=== PATIENT | male | born 1945 | race African-American/Black ===

== ENCOUNTER 2018-05-26 11:46 | Emergency (ER) | payer MEDICARE ==
--- NOTE | 2018-05-26 14:30 | RAD ---
PORTABLE CHEST: Date: 05/26/18 Time: 1402 hours HISTORY: Right-sided chest pain, shoulder pain. FINDINGS: The heart size is normal. There is evidence of old granulomatous disease. The lungs are well expanded without focal areas of consolidation, pneumothoraces, or pleural effusions. IMPRESSION: No acute process. POS: [facility]
--- NOTE | 2018-05-26 14:31 | RAD ---
RIGHT KNEE 4 VIEWS:: Date: 05/26/18 PROVIDED CLINICAL HISTORY: Pain status post injury. FINDINGS: There is no evidence for fracture or other acute osseous abnormality. Metallic densities are seen in the soft tissues posterior to the knee. Vascular calcifications are noted. Alignment appears anatomic . Joint spaces appear preserved. Mild knee joint capsular distention likely reflects effusion. IMPRESSION: No evidence for an acute osseous abnormality. If there is persistent clinical concern, conservative m anagement and follow-up imaging are advised. POS: [facility]
[2018-05-26] MEDS ORDERED: Acetaminophen 500 MG TAB ONE (15:17)
== END 2018-05-26 15:25 | disposition home or self-care (01) ==
LOC: ERS 11:46
DX: S46.911A Strain of unspecified muscle, fascia and tendon at shoulder and upper arm level, right arm, initial encounter (principal); M25.561 Pain in right knee; I10 Essential (primary) hypertension; E78.5 Hyperlipidemia, unspecified; F32.9 Major depressive disorder, single episode, unspecified; F17.210 Nicotine dependence, cigarettes, uncomplicated; Z79.899 Other long term (current) drug therapy; V89.2XXA Person injured in unspecified motor-vehicle accident, traffic, initial encounter
CPT/HCPCS: 71045

== ENCOUNTER 2019-09-05 10:23 | Observation (INO) | payer MEDICARE ==
[2019-09-05 11:20] LABS: #Basophils 0.1 thou/uL (0.0-0.2); #Lymphocytes 1.1 thou/uL (1.20-3.40); #Monocytes 0.6 thou/uL (0.11-0.59); %Basophils 0.9 % (0.0-1.0); %Eosinophils 0.7 % (0.0-10.0); %Lymphocytes 18.3 % (21.0-51.0); %Monocytes 10.6 % (0.0-10.0); %Neutrophils 69.5 % (42.0-75.0); Mean Corpuscular HGB CONC 32.9 g/dL (32.0-36.0); Mean Corpuscular Hemoglobin 30.4 pg (27.0-31.0); Mean Corpuscular Volume 92.4 fL (78.0-98.0); Mean Platelet Volume 6.4 fL (7.4-10.4); Platelet Count 321 thou/uL (130-400); RBC Distribution Width 13.8 % (11.5-14.5); Red Blood Cell (RBC) Count 4.28 mill/uL (4.70-6.10); White Blood Cell (WBC) Count 5.8 thou/uL (4.8-10.8)
[2019-09-05 11:35] LABS: ALT (SGPT) 24 U/L (8-55); AST (SGOT) 28 U/L (5-34); Albumin 4.2 g/dL (3.4-4.8); Alkaline Phosphatase 92 U/L (40-110); Anion Gap 13 mmol/L (10-20); BUN (Urea Nitrogen) 22 mg/dL (8.4-25.7); Bilirubin, Total 0.5 mg/dL (0.2-1.2); Calc. Creatinine Clearance 0 mL/min (70-130); Calcium 9.5 mg/dL (7.8-10.44); Carbon Dioxide 28 mmol/L (23-31); Chloride 101 mmol/L (98-107); Estimated GFR-MDRD 63; Globulin 3.3 g/dL (2.4-3.5); Glucose 90 mg/dL (83-110); Potassium 3.8 mmol/L (3.5-5.1); Protein, Total 7.5 g/dL (5.8-8.1); Sodium 138 mmol/L (136-145)
--- NOTE | 2019-09-05 13:04 | CT ---
EXAM: CT ABDOMEN AND PELVIS HISTORY: Abdominal pain. COMPARISON: None. Procedure: Multiple contiguous axial images were obtained and a CT of the abdomen and pelvis with IV contrast. C oronal reformats were performed. FINDINGS: Lower Chest: Dependent atelectatic changes. Calcified granuloma in the lingula. Vessels: Normal caliber aorta. Atherosclerosis. No periaortic fat stranding. Probable vascular occlus ion of the left common iliac artery. Heart: Normal heart size. Abdomen: Portal vein:Patent Gallbladder: No calcified gallstones. Normal caliber wall. Liver: within normal limits. Pancreas: within normal limits. Spleen: within normal limits. Adrenals: within normal limits. Kidneys: Symmetric enhancement. No obstructive uropathy. Peritoneum: No ascites or free air, no fluid collection. Bowel: Limited evaluation due to the lack of oral contrast administration. No evidence of bowel obstr uction. Ileocecal junction is unremarkable. Normal caliber appendix. Scattered fecal material in a nondistended, nondilated colon. Diverticulosis, without evidence of diverticulitis. Mesentery and Retroperitoneum: No enlarged mesenteric or retroperitoneal lymph nodes. Nonspecific loc ulated hypodensity along the right flank, inferior to the cecal apex measures 4.0 x 2.9 x 3.3 cm. Findings may represent an incidental seroma or nonspecific benign cystic lesion. Abdominal Wall: within normal limits. Pelvis: Reproductive Organs: Reproductive organs are unremarkable. Pelvis: No mass, lymphadenopathy, free air or free fluid. Bladder: within normal limits. Bones: within normal limits. IMPRESSION: 1. No acute abnormality in the abdomen or pelvis 2. Diverticulosis, without evidence of diverticulitis 2. Normal caliber appendix 4. Nonspecific benign-appearing cystic lesion in the right lower quadrant. 5. Atherosclerosis and probable vascular occlusion of the left common iliac artery.
[2019-09-05] MEDS ORDERED: Aspirin Chewable 81 MG TAB ONE (13:35)
[2019-09-05 14:31] LABS: Bilirubin Negative (Negative); Blood, Urine Negative (Negative); Clarity Clear (Clear); Glucose, Urine (Dipstick) Normal (Negative); Leukocyte Negative Leu/uL (Negative); Nitrite Negative (Negative); Protein, Urine (Dipstick) 10 mg/dL (Neg-Trace); Urobilinogen Normal mg/dL (Less than 2)
[2019-09-05] MEDS ORDERED: Sucralfate 1 GM/10 ML UDCUP ONE (14:36)
[2019-09-05 15:42] LABS: CKMB 1.8 ng/mL (0-6.6)
[2019-09-05] MEDS ORDERED: Guaifenesin DM 100-10/5 ML UDCUP PO PRN (16:58)
[2019-09-05] MEDS ORDERED: Senokot S 8.6-50 MG TAB PO PRN (16:58)
[2019-09-05] MEDS ORDERED: Acetaminophen 325 MG TAB PO PRN (16:58)
[2019-09-05] MEDS ORDERED: Bisacodyl 10 MG SUPP PR PRN (16:58)
[2019-09-05] MEDS ORDERED: Ondansetron PF 4 MG/2 ML Vial IVP PRN (16:58)
[2019-09-05] MEDS ORDERED: Sodium Chloride 0.9% 1,000 ML IV SCH (17:00)
--- NOTE | 2019-09-05 18:17 | HP ---
REASON FOR ADMISSION: Epigastric pain, to rule out ACS/angina equivalent, abdominal pain with history of peripheral vascular disease. HISTORY OF PRESENTING ILLNESS: The patient gives history of epigastric pain which started in the afternoon. This lasted for a few minutes. He had an episode of diarrhea as well. No blood in the stool. No retrosternal pain as such. He has had mild cough, which he says is usual for him. No fever. The patient also has peripheral vascular disease in his left side and has trouble ambulating for more than ADL distances. He also admits to using cocaine for the 1st time yesterday. No complaints of any obvious exposure to someone with COVID-19 as far as he knows. He does not recall if he has had any cardiac workup in the past. PAST MEDICAL AND SURGICAL HISTORY: History of hypertension, dyslipidemia, mood disorder/PTSD. CURRENT MEDICATIONS: 1. Patient is on lisinopril 10 mg daily. 2. Aspirin 81 mg p.o. daily. 3. Bupropion 100 mg daily. 4. Trazodone 300 mg p.o. at bedtime. 5. Lisinopril with hydrochlorothiazide 10/12.5 mg daily. 6. Zocor 20 mg p.o. at bedtime. ALLERGIES: NO KNOWN DRUG ALLERGIES. PERSONAL HISTORY: States he quit smoking 10 years ago. He used cocaine for the 1st time yesterday. He used to use marijuana before, the last use was more than 2 months back. Uses alcohol on social occasions. He normally ambulates by himself, occasionally uses cane. He lives with his son. FAMILY HISTORY: Mother in her 60s. She had breast cancer. Father was killed in his 50s. CODE STATUS: Full. Power of wire repairer is his son, Mr. Anabel Mortensen. REVIEW OF SYSTEMS: CONSTITUTIONAL: Negative for weight loss or gain, ability to conduct usual activities. SKIN: Negative for rash, itching. EYES: Negative for double vision, pain. ENT/MOUTH: Negative for nose bleeding, neck stiffness, pain, tenderness. CARDIOVASCULAR: Negative for palpitations, dyspnea on exertion, orthopnea. RESPIRATORY: Negative for shortness of breath, wheezing, cough, hemoptysis, fever or night sweats. GASTROINTESTINAL: Negative for poor appetite, abdominal pain, heartburn, nausea, vomiting, constipation, or diarrhea. GENITOURINARY: Negative for urgency, frequency, dysuria, nocturia. MUSCULOSKELETAL: Negative for pain, swelling. NEUROLOGIC/PSYCHIATRIC: Negative for anxiety, depression. ALLERGY/IMMUNOLOGIC: Negative for skin rash, bleeding tendency. PHYSICAL EXAMINATION: GENERAL: The patient is a 74-year-old male, who is currently not in any acute distress. VITAL SIGNS: Blood pressure 112 x 60, pulse is 84 per minute, respiratory rate 20 per minute, temperature 97.8 degrees Fahrenheit, saturating 96% on room air. NECK: Supple. No elevated JVD. HEENT: Eyes; extraocular muscles intact. Pupils reacting to light. Oral cavity, mucous membranes are moist. No exudates or congestion. CARDIOVASCULAR SYSTEM: S1, S2 heard. Regular rhythm. RESPIRATORY SYSTEM: Air entry 1+ bilateral. Scattered rhonchi plus no rales or wheezes. ABDOMEN: Soft. Mild tenderness in the epigastric area. No rigidity or guarding. EXTREMITIES: No peripheral edema or calf tenderness. Peripheral pulses are barely palpable on the left foot. Right lower extremity peripheral pulses are felt. CENTRAL NERVOUS SYSTEM: No gross focal motor deficits noted. The patient is alert, awake, and oriented well. PSYCHIATRIC SYSTEM: Patient's mood is euthymic. No hallucinations or delusions. LABORATORY DATA: EKG done shows normal sinus rhythm at 65 beats per minute and there is Q-wave seen in V1 and V2. CT of the abdomen and pelvis done shows no acute abnormality in the abdomen or pelvis. Diverticulosis is seen. No evidence of diverticulitis. There is a benign-appearing cystic lesion in the right lower quadrant, atherosclerosis and probable vascular occlusion of the left common iliac artery. White count of 5.8, H and H 13 and 39, platelet count 321 with 69% neutrophils, MCV is 92. BUN 22, creatinine 1.3, serum bicarb 28. Troponin 1st set was negative, 2nd set is 0.03. CK-MB 1.8. Liver enzymes are within normal limits. Serum glucose 90. CLINICAL IMPRESSION AND PLAN: Patient will be under observation on telemetry for chest pain equivalent, to rule out acute coronary syndrome. He also has severe peripheral vascular disease with occlusion of left internal iliac artery. He also has claudication symptoms. In view of atherosclerosis, we will obtain a nuclear stress test 1st and see if he needs cardiac coronary angiogram in addition to peripheral vascular procedures. I have spoken to Dr. René Rainey, who will be evaluating patient. If procedures are planned, he will be switched over to inpatient status. He will be on full-dose aspirin, Lipitor. We will continue his home dose of Wellbutrin and trazodone. He will be on nitroglycerin paste half-inch q.8 hourly, gentle hydration with normal saline at 50 mL per hour for a total of 1 L. Echo with 2D Doppler for LV function. We will continue to closely monitor him on telemetry. Job ID: [id number]
[2019-09-05 18:28] LABS: Troponin I 0.014 ng/mL (< 0.028)
[2019-09-05] MEDS ORDERED: traZODone HCl 150 MG TAB PO SCH (21:00)
[2019-09-05] MEDS ORDERED: Atorvastatin Calcium 40 MG TAB PO SCH (21:00)
[2019-09-05] MEDS: Famotidine 20 MG TAB PO SCH (21:15)
[2019-09-05 21:30] LABS: Troponin I 0.023 ng/mL (< 0.028)
--- NOTE | 2019-09-05 22:26 | CON ---
DATE OF CONSULTATION: 09/05/2019 REASON FOR CONSULTATION: Evaluate the patient with peripheral vascular disease. HISTORY OF PRESENT ILLNESS: Mr. Rios is a 74-year-old gentleman, who was admitted with epigastric pain, rule out coronary artery disease. He has history of peripheral vascular disease. He has been followed at the [place] and was set up for a procedure that he is not aware of what it was, but this was delayed due to the COVID crisis and he is now here in the hospital. I have been asked to see him for further evaluation of his peripheral vascular disease. The patient complains of severe thigh and buttock claudication with ambulation. He says this comes on at less than 5 minutes of walking. It happens on the left only. His right side, he does not have any claudication. He has no rest pain. He has no history of tissue loss. He has no history of prior peripheral vascular procedures. He has no history of coronary artery disease or cerebrovascular disease. PAST MEDICAL HISTORY: 1. Hypertension. 2. Dyslipidemia. 3. Multisubstance abuse. PAST SURGICAL HISTORY: None. CURRENT MEDICATIONS: 1. Aspirin 81 mg daily. 2. Lisinopril/hydrochlorothiazide 10/12.5 mg daily. 3. Zocor 20 mg at bedtime. 4. Bupropion 100 mg daily. 5. Trazodone 300 mg at bedtime. ALLERGIES: NONE. SOCIAL HISTORY: The patient says he quit smoking cigarettes approximately 3 months ago. He used marijuana regularly up until that time. He tried cocaine for the first time yesterday. REVIEW OF SYSTEMS: A 10-point review of systems is performed and is negative except as above. PHYSICAL EXAMINATION: GENERAL: This is a diminutive elderly gentleman, resting comfortably in bed. VITAL SIGNS: Temperature is 98.0, pulse is 65 and regular, and blood pressure is 160/78. HEENT: Sclerae nonicteric. Pupils are equal and round bilaterally. NECK: Supple. He has no carotid bruits. CHEST: Clear bilaterally. HEART: Rhythm is regular without murmur. ABDOMEN: Soft and nontender. EXTREMITIES: There is no edema. Feet are warm bilaterally. He has Doppler signals in both dorsalis pedis bilaterally. Femoral pulse is palpable on the right and not on the left. ASSESSMENT AND PLAN: This is a pleasant 74-year-old gentleman, who has history of peripheral vascular disease that has apparently been worked up and he was scheduled for treatment, which has been delayed at the [place]. He is asked to be seen here. Our first step in evaluation will include a CT angiogram. He obviously has some iliac disease on the left with no palpable femoral pulse on the left. We will see what this looks like and see as to the best treatment option after CT angiogram. Job ID: [id number]
[2019-09-05] MEDS: Nitroglycerin 2% Ointment 1 INCH/1 GM Packet TOP SCH (22:41)
[2019-09-06 04:57] LABS: #Eosinphils 0.1 thou/uL (0.0-0.7); #Lymphocytes 1.2 thou/uL (1.20-3.40); #Monocytes 0.5 thou/uL (0.11-0.59); #Neutrophils 2.4 thou/uL (1.40-6.50); %Basophils 1.2 % (0.0-1.0); %Eosinophils 1.2 % (0.0-10.0); %Lymphocytes 29.2 % (21.0-51.0); %Monocytes 12.4 % (0.0-10.0); Hemoglobin 10.9 g/dL (14.0-18.0); Mean Corpuscular HGB CONC 32.2 g/dL (32.0-36.0); Mean Corpuscular Hemoglobin 30.2 pg (27.0-31.0); Mean Corpuscular Volume 93.6 fL (78.0-98.0); Mean Platelet Volume 6.9 fL (7.4-10.4); Platelet Count 283 thou/uL (130-400); RBC Distribution Width 13.8 % (11.5-14.5); Red Blood Cell (RBC) Count 3.62 mill/uL (4.70-6.10); White Blood Cell (WBC) Count 4.2 thou/uL (4.8-10.8)
[2019-09-06] MEDS: Nitroglycerin 2% Ointment 1 INCH/1 GM Packet TOP SCH ×2 (05:01→15:02)
[2019-09-06 05:20] LABS: Anion Gap 11 mmol/L (10-20); BUN (Urea Nitrogen) 28 mg/dL (8.4-25.7); Calc. Creatinine Clearance 52 mL/min (70-130); Calcium 8.2 mg/dL (7.8-10.44); Carbon Dioxide 24 mmol/L (23-31); Cardiac Risk 2.5 (Less than 4.5); Chloride 108 mmol/L (98-107); Cholesterol 168 mg/dl (< 200 Desired); Estimated GFR-MDRD 84; Glucose 105 mg/dL (83-110); HDL Cholesterol 66 mg/dL (>60 Neg Risk); LDL Cholesterol, Calculated 80 mg/dL; Potassium 3.6 mmol/L (3.5-5.1); Sodium 139 mmol/L (136-145); Triglycerides 110 mg/dL (Less than 150)
[2019-09-06] MEDS ORDERED: Aspirin 325 mg Enteric Coated Tablet PO SCH (09:00)
[2019-09-06] MEDS ORDERED: Enoxaparin Sodium 40 MG/0.4 ML SYRINGE SC SCH (09:00)
[2019-09-06] MEDS ORDERED: buPROPion HCl 100 MG TAB PO SCH (09:00)
[2019-09-06] MEDS ORDERED: Regadenoson 0.4 MG/5 ML SYRINGE ONE (09:14)
--- NOTE | 2019-09-06 10:35 | PDOC.HOSPP ---
- Subjective Encounter Date: 09/06/19 Encounter Time: 09:30 Subjective: no chest pain or sob this am feels better - Objective Vital Signs & Weight: Vital Signs (12 hours) Temp Pulse Resp BP Pulse Ox 09/06/19 08:07 97.9 F 65 20 160/80 H 95 09/06/19 04:58 98.3 F 60 18 124/63 93 L Weight Weight 129 lb 9.6 oz I&O: 09/05/19 09/06/19 09/07/19 06:59 06:59 06:59 Intake Total 0 Output Total 0 Balance 0 Result Diagrams: 09/06/19 03:46 09/06/19 03:46 Hospitalist ROS - Medication Medications: Active Medications Generic Name Dose Route Start Last Admin Trade Name Jermaineq PRN Reason Stop Dose Admin Atorvastatin Calcium 40 mg 09/05/19 21:00 09/05/19 21:15 Lipitor PO 40 mg HS SINA Administration Famotidine 20 mg 09/05/19 21:00 09/05/19 21:15 Pepcid PO 20 mg BID SINA Administration Sodium Chloride 1,000 mls @ 50 mls/hr 09/05/19 17:00 09/05/19 17:50 Normal Saline 0.9% IV 09/06/19 12:59 1,000 mls .Q20H SINA Administration Nitroglycerin 0.5 inch 09/05/19 22:00 09/06/19 05:01 Nitro-Bid 2% Ointment TOP 0.5 inch Q8HR SINA Administration Trazodone HCl 300 mg 09/05/19 21:00 09/05/19 21:15 Desyrel PO 300 mg HS SINA Administration - Exam General Appearance: awake alert Eye: PERRL, anicteric sclera ENT: no oropharyngeal lesions, moist mucosa Neck: supple, no JVD Heart: RRR, no murmur Respiratory: no wheezes, no rales Gastrointestinal: soft, non-tender, non-distended, normal bowel sounds Extremities: no cyanosis, no edema Neurological: cranial nerve grossly intact, no focal deficits Psychiatric: normal affect, A&O x 3 Hosp A/P (1) Chest pain Code(s): R07.9 - CHEST PAIN, UNSPECIFIED Status: Acute (2) PVD (peripheral vascular disease) Code(s): I73.9 - PERIPHERAL VASCULAR DISEASE, UNSPECIFIED Status: Acute (3) Dyslipidemia Code(s): E78.5 - HYPERLIPIDEMIA, UNSPECIFIED Status: Chronic (4) Cocaine abuse Code(s): F14.10 - COCAINE ABUSE, UNCOMPLICATED Status: Chronic (5) Hypertension Code(s): I10 - ESSENTIAL (PRIMARY) HYPERTENSION Status: Chronic Qualifiers: Hypertension type: essential hypertension Qualified Code(s): I10 - Essential (primary) hypertension - Plan for stress test this am CT aorta with run off further procedures depend on above tests if any procedures are planned switch him to inpatient status hemostable continue current meds
--- NOTE | 2019-09-06 14:21 | NM ---
NUCLEAR MEDICINE CARDIAC STRESS WITH EF AND WALL MOTION: HISTORY: Angina TECHNIQUE: Patient was administered 9 mCi of technetium 99M sestamibi for rest imaging and 27 mCi of technetium 99M sestamibi for stress imaging. Cardiac gating was performed. FINDINGS: Homogeneous distribution of the radiotracer in the left ventricle on the stress attenuation correctio n images. No reversibility or fixed defect TID is 1.07 End-diastolic volume is 88 mL End-systolic volume is 38 mL Cardiac gating: Normal wall motion and thickening. 57% ejection fraction. IMPRESSION: 1. No reversibility or fixed defect. 2. 57% ejection fraction. Transcribed Date/Time: 09/06/2019 3:13 PM
[2019-09-06] MEDS: Famotidine 20 MG TAB PO SCH (14:33)
--- NOTE | 2019-09-06 14:50 | CT ---
HISTORY: Peripheral vascular disease COMPARISON: None Correlation: Abdomen pelvis CT 09/05/2019 TECHNIQUE: Multiple contiguous axial images were obtained a CTA of the abdomen, pelvis, and bilateral lower extremities with contrast. Sagittal and coronal 3-D MIP reformats were performed. FINDINGS: Liver: Appropriate arterial phase enhancement. Gallbladder: No evidence of cholelithiasis or cholecystitis. Kidneys: Symmetric enhancement of the kidneys. No obstructive uropathy. Adrenal glands: Appropriate arterial phase enhancement. Spleen: Appropriate arterial phase enhancement. Pancreas: Appropriate enhancement. Bowel: No bowel obstruction. Reproductive organs :Unremarkable. Retroperitoneum: No lymphadenopathy Bones: Degenerative changes in the spine. Inferior thorax: Chronic changes. Abdominal aorta. Normal caliber without evidence of dissection or aneurysmal dilatation. Celiac trunk: Mild narrowing secondary to calcified and noncalcified plaque. SMA: Patent RAMILA: Patent Renal arteries: Bilateral single renal arteries with small amount of atherosclerotic disease involvin g both proximal renal arteries. Bilateral common iliac arteries: Right common iliac artery is patent. There is occlusion of the left common iliac artery extending into the internal iliac artery. Internal iliac arteries: Process involving bilateral internal iliac arteries. External iliac arteries: Appropriate enhancement and luminal diameter of the right external iliac art monica. Occlusion of the entire left external iliac artery.. Common femoral arteries: Appropriate enhancement and luminal diameter of the right common femoral art monica. Mild narrowing due to atherosclerotic disease of the right common femoral artery. There is recanalization of the left lower extremity arterial system via collaterals. The left common femoral a rtery has appropriate enhancement and luminal diameter. Mild narrowing due to atherosclerotic disease.. Profunda femoral arteries: Unremarkable. Superficial femoral arteries: Right lower extremity: Short segment mild stenosis involving the proximal right common femoral artery . A short segment high-grade stenosis with near complete occlusion of the mid superficial femoral artery. There is complete occlusion of the distal superficial femoral artery. Left lower extremity: There is multisegment mild stenosis throughout the superficial femoral artery.. Popliteal arteries: Right lower extremity: Multisegment atherosclerosis with mild narrowing Left lower extremity: Multisegment stenosis with mild narrowing . Right lower extremity: Complete occlusion of the anterior vertebral artery. Multisegment areas of sev ere stenosis of the peroneal artery and posterior tibial artery Left lower extremity: Multifocal severe stenosis throughout intracranial vertebral artery, peroneal a rtery and posterior tibial artery IMPRESSION: 1. Complete occlusion of the left common iliac artery and left external iliac artery. Recanalization at the level of the left common femoral artery via collaterals. 2. Multilevel mild stenosis throughout both superficial femoral arteries. There is multifocal severe stenosis/occlusion involving the right beneficial femoral artery. 3. Severe atherosclerotic disease involving both lower extremity arterial systems be on the popliteal artery. Transcribed Date/Time: 09/06/2019 3:15 PM
[2019-09-06] MEDS ORDERED: cloNIDine 0.1 MG TAB PO PRN (15:05)
[2019-09-06] MEDS ORDERED: hydrALAZINE 20 MG/ML VIAL SLOW IVP PRN (15:05)
[2019-09-06 15:08] VITALS: TEMP 97.7
[2019-09-06] MEDS ORDERED: Lisinopril 10 MG TAB PO SCH (15:15)
[2019-09-06 16:50] VITALS: BP 159/74
[2019-09-07] MEDS ORDERED: Lisinopril/Hydrochlorothiazide 10 mg/12.5 mg Tablet PO SCH (09:00)
--- NOTE | 2019-09-07 14:32 | DIS ---
DATE OF ADMISSION: 09/05/2019 DATE OF DISCHARGE: 09/06/2019 DISCHARGE DISPOSITION: To home. PRIMARY DISCHARGE DIAGNOSES: 1. Chest pain which is noncardiac. 2. Peripheral vascular disease in the left iliac artery in the left lower extremity for further procedures as an outpatient. 3. Cocaine abuse. 4. Dyslipidemia. 5. Hypertension. PROCEDURES DONE DURING HOSPITALIZATION: CT of the abdomen and pelvis with contrast done, showed no acute abnormality in the abdomen or pelvis. There are findings of diverticulosis without evidence of diverticulitis. There was probable vascular occlusion of the left common iliac artery. Nuclear stress test done on 2019 showed no fixed or reversible defect. Ejection fraction was 57%. Normal wall motion. CT of the aorta with runoff showed complete occlusion of left common iliac artery and left external iliac artery, recanalization at the level of left common femoral artery via collaterals, multilevel mild stenosis throughout both superficial femoral arteries. There is multifocal severe stenosis/occlusion involving right beneficial femoral artery, severe atherosclerotic disease involving both lower extremity arterial systems on the popliteal artery. Echo with 2D Doppler showed an ejection fraction of 55% to 60%. There was diastolic dysfunction, severely thickened trileaflet aortic valve, decreased excursion. There was no significant gradient through the aortic valve. INPATIENT CONSULT: Dr. René Rainey for Vascular Surgery. DISCHARGE MEDICATIONS: 1. Aspirin 325 mg p.o. daily. 2. Lipitor 40 mg p.o. at bedtime. 3. Lisinopril with hydrochlorothiazide 10/12.5 mg daily. 4. Trazodone 300 mg p.o. at bedtime. 5. Bupropion 100 mg p.o. daily. ALLERGIES: NO KNOWN DRUG ALLERGIES. DISCHARGE PLAN: The patient will follow up with Dr. René Rainey in a week for possible peripheral vascular procedures. To follow up with his primary care physician, Dr. Sanchez in 1 week. BRIEF COURSE DURING HOSPITALIZATION: The patient initially got admitted on the with complaints of epigastric pain. In view of multiple risk factors, the patient was placed under observation on telemetry to rule out ACS. He also used cocaine the previous day of admission. His initial CAT scan showed occlusion of left iliac artery. The patient also gave history of claudication symptoms. He has had a nuclear stress test done, which showed no reversible ischemia. Echo showed thickening of aortic valve, but no gradient was seen. CT angio with aortic runoff done, showed findings described above. He was evaluated by Dr. René Rainey for Vascular Surgery. The patient likely will have outpatient vascular procedures done in the following week. He was counseled with regard to complete cessation of cocaine. Prior to discharge, he is eating and ambulating well. Please note, I have seen and examined the patient on the day of discharge. Job ID: [id number] MTDD
--- NOTE | 2019-09-12 14:25 | EKG ---
Test Reason : Blood Pressure : / mmHG Vent. Rate : 065 BPM Atrial Rate : 065 BPM P-R Int : 164 ms QRS Dur : 090 ms QT Int : 432 ms P-R-T Axes : 044 069 060 degrees QTc Int : 449 ms Normal sinus rhythm with sinus arrhythmia Septal infarct , age undetermined Abnormal ECG Confirmed by COLBY MCCALLUM M.D. ([id number]), editor sound MILA GUTIERREZ ([id number]) on 09/12/2019 2:24:56 PM Referred By: Confirmed By:COLBY MCCALLUM M.D.
== END 2019-09-06 17:25 | disposition home or self-care (01) ==
LOC: ERS 10:23 → 2NO 17:44
PROVIDERS: ADMIT Internal Medicine; ATTEND Internal Medicine
DX: R07.89 Other chest pain (principal); R10.13 Epigastric pain; I70.212 Atherosclerosis of native arteries of extremities with intermittent claudication, left leg; I70.201 Unspecified atherosclerosis of native arteries of extremities, right leg; I70.92 Chronic total occlusion of artery of the extremities; F14.10 Cocaine abuse, uncomplicated; E78.5 Hyperlipidemia, unspecified; I10 Essential (primary) hypertension; F43.10 Post-traumatic stress disorder, unspecified; F39 Unspecified mood [affective] disorder; K57.90 Diverticulosis of intestine, part unspecified, without perforation or abscess without bleeding; Z87.891 Personal history of nicotine dependence; Z79.82 Long term (current) use of aspirin; Z79.899 Other long term (current) drug therapy
CPT/HCPCS: 74177; 75635; 78452; 80048; 80053; 80061; 81003; 82553; 83605; 83690; 84484 ×2; 85025 ×2; 93005; 93017; 93306; 94760 ×2; 96360; 96361 ×2; 96372; 99285; A9500; G0378 ×3; 36415; J1650; J2785

== ENCOUNTER 2019-09-23 10:30 | Inpatient (IN) | payer OTHER ==
[2019-09-23 09:19] VITALS: BMI 20.8
[2019-09-23 13:48] LABS: Hemoglobin 12.4 g/dL (14.0-18.0); Mean Corpuscular HGB CONC 32.3 g/dL (32.0-36.0); Mean Corpuscular Hemoglobin 30.3 pg (27.0-31.0); Mean Corpuscular Volume 93.7 fL (78.0-98.0); Mean Platelet Volume 7.2 fL (7.4-10.4); Platelet Count 236 thou/uL (130-400); RBC Distribution Width 12.9 % (11.5-14.5); Red Blood Cell (RBC) Count 4.09 mill/uL (4.70-6.10)
[2019-09-23 14:06] LABS: Anion Gap 13 mmol/L (10-20); BUN (Urea Nitrogen) 15 mg/dL (8.4-25.7); Calc. Creatinine Clearance 0 mL/min (70-130); Calcium 9.1 mg/dL (7.8-10.44); Carbon Dioxide 24 mmol/L (23-31); Chloride 106 mmol/L (98-107); Estimated GFR-MDRD Greater than 90; Glucose 119 mg/dL (83-110); Sodium 139 mmol/L (136-145)
[2019-09-24 14:09] LABS: SARS-CoV-2 MS2 Positive; SARS-CoV-2 N Gene Negative; SARS-CoV-2 S Gene Negative; SARS-CoV-2 orf1ab Negative
[2019-09-29] MEDS ORDERED: Protamine Sulfate 50 MG/5 ML VIAL ONE ×2 (09:22→11:26)
[2019-09-29] MEDS ORDERED: Heparin 5,000 UNITS/ML VIAL ONE (09:22)
[2019-09-29] MEDS ORDERED: Fentanyl 100 MCG/2 ML VIAL ONE ×3 (10:25→12:35)
[2019-09-29] MEDS ORDERED: Ondansetron HCl/PF 4 MG/2 ML Vial IVP PRN (12:04)
[2019-09-29] MEDS ORDERED: Fentanyl 100 MCG/2 ML VIAL SLOW IVP PRN ×2 (12:35)
[2019-09-29] MEDS ORDERED: Ondansetron PF 4 MG/2 ML Vial IVP PRN (12:35)
[2019-09-29] MEDS ORDERED: traMADol HCl 50 MG TAB PO PRN ×2 (12:35)
[2019-09-29] MEDS ORDERED: Acetaminophen 325 MG TAB PO PRN (12:35)
[2019-09-29] MEDS ORDERED: Labetalol HCl 100 MG/20 ML VIAL ONE (12:39)
[2019-09-29] MEDS ORDERED: Ondansetron PF 4 MG/2 ML Vial ONE (12:39)
[2019-09-29] MEDS ORDERED: Dexamethasone 20 MG/5 ML VIAL ONE (12:39)
[2019-09-29] MEDS ORDERED: Lidocaine 1% PF 5 ML VIAL ONE (12:39)
[2019-09-29] MEDS ORDERED: Glycopyrrolate 0.2 MG/ML 5 ML SYRINGE ONE (12:39)
[2019-09-29] MEDS ORDERED: PROPOFOL 200 MG/20 ML VIAL ONE (12:39)
[2019-09-29] MEDS ORDERED: Rocuronium Bromide 10 MG/ML (10ML VIAL) ONE (12:39)
[2019-09-29] MEDS ORDERED: Ketorolac Tromethamine 30 MG/ML VIAL ONE (12:39)
[2019-09-29] MEDS ORDERED: Promethazine HCl 25 MG/ML VIAL ONE (12:49)
--- NOTE | 2019-09-29 12:56 | OP ---
DATE OF PROCEDURE: 09/29/2019 PREOPERATIVE DIAGNOSIS: Peripheral vascular disease with left leg rest pain. POSTOPERATIVE DIAGNOSIS: Peripheral vascular disease with left leg rest pain. PROCEDURE PERFORMED: [id number] fem-fem bypass utilizing 8-mm ringed Propaten coated [place]-Bipin. AIRCRAFT ORDNANCE TECHNICIAN: Orestes Rodriguez MD ANESTHESIA: General endotracheal, Dr. Bess Campbell. ESTIMATED BLOOD LOSS: Less than 50. DESCRIPTION OF PROCEDURE: After consent was obtained, the patient was brought to the operating room and placed in supine position on the operating room table. Appropriate central line and monitors were placed and general endotracheal anesthesia was induced. Groins, abdomen, and legs were prepped and draped in usual sterile fashion. Skin incisions were made over the femoral arteries and common femoral arteries dissected free from surrounding tissues. The patient was systemically heparinized. An 8-mm ringed Aynor-Bipin graft was tunneled above the fascia. After 3 minutes, clamps were applied. An arteriotomy was created in a running 5-0 Prolene suture. Anastomosis was created between the Aynor-Bipin graft and common femoral artery on the right. There was good antegrade flow through the graft. The graft was re-clamped. Antegrade flow was reestablished down the leg. The graft was cut to appropriate length and some more running anastomosis was created in the common femoral artery on the left. On release clamps, there was good antegrade flow and palpable pulse. Protamine was administered. Hemostasis was ensured. Wounds were copiously irrigated, closed in layers and Dermabond applied to skin. The patient tolerated the procedure well, was awakened, extubated, and transferred to recovery room in stable condition. Job ID: [id number]
[2019-09-29] MEDS: CEFAZOLIN 2 GM in Premix Bag 1 BAG IVPB SCH (17:53)
[2019-09-29] MEDS: traZODone HCl 150 MG TAB PO SCH (21:40)
[2019-09-29] MEDS: Atorvastatin Calcium 40 MG TAB PO SCH (21:40)
[2019-09-30] MEDS: CEFAZOLIN 2 GM in Premix Bag 1 BAG IVPB SCH ×2 (02:46→09:56)
[2019-09-30] MEDS ORDERED: Aspirin 325 MG TAB PO SCH (09:00)
[2019-09-30] MEDS: Cholecalciferol 1,000 UNITS (25 MCG) TAB PO SCH (09:55)
[2019-09-30] MEDS: Aspirin 81 mg Enteric Coated Tablet PO SCH (09:56)
[2019-09-30] MEDS: Clopidogrel Bisulfate 75 MG TAB PO SCH (09:56)
--- NOTE | 2019-09-30 19:34 | DIS ---
DATE OF ADMISSION: 09/29/2019 DATE OF DISCHARGE: 10/01/2019 DIAGNOSES: Peripheral vascular disease. PROCEDURE: [id number]-ljfi fem-fem bypass utilizing 8 mm ringed Propaten coated [place]-Bipin. DESCRIPTION OF HOSPITAL STAY: Mr. Rios was brought in for elective bypass for rest pain in his left foot. He has done well postoperatively. His incisions are healing nicely. He has been walking with no pain in his foot. He has no further rest pain. Instructions included for him to walk as much as possible. He should shower daily, but not be in the bathtub, hot tub, or swimming pool. I will see him back in the office in 2 weeks. DISCHARGE MEDICATIONS: Include; 1. Aspirin 81 mg daily. 2. Plavix 75 mg daily. 3. Lisinopril/HCTZ 10/12.5 daily. 4. Lipitor 40 mg at bedtime. 5. Trazodone 300 mg at bedtime p.r.n. 6. Vitamin D3, 2000 units daily. 7. Bupropion 100 mg daily. Job ID: [id number]
[2019-09-30] MEDS: traZODone HCl 150 MG TAB PO SCH (20:33)
[2019-09-30] MEDS: Atorvastatin Calcium 40 MG TAB PO SCH (20:33)
[2019-10-01 07:29] VITALS: TEMP 98
[2019-10-01] MEDS: Aspirin 81 mg Enteric Coated Tablet PO SCH (10:24)
[2019-10-01] MEDS: Cholecalciferol 1,000 UNITS (25 MCG) TAB PO SCH (10:24)
[2019-10-01] MEDS: Clopidogrel Bisulfate 75 MG TAB PO SCH (10:25)
[2019-10-01 11:48] VITALS: BP 171/71
== END 2019-10-01 13:35 | disposition home or self-care (01) | DRG 254 ==
LOC: SURG A 09-29 05:50 → SURG B 09-29 13:31
PROVIDERS: ADMIT Thoracic Surgery (Cardiothoracic Vascular Surgery); ATTEND Thoracic Surgery (Cardiothoracic Vascular Surgery)
PROC: 041K0JJ Bypass Right Femoral Artery to Left Femoral Artery with Synthetic Substitute, Open Approach (ICD-10-PCS; principal; 2019-09-29)
DX: I70.222 Atherosclerosis of native arteries of extremities with rest pain, left leg (principal); Z11.59 Encounter for screening for other viral diseases; I10 Essential (primary) hypertension; F14.10 Cocaine abuse, uncomplicated; F12.10 Cannabis abuse, uncomplicated; F17.290 Nicotine dependence, other tobacco product, uncomplicated; Z79.899 Other long term (current) drug therapy; Z79.82 Long term (current) use of aspirin
CPT/HCPCS: 36415; 80048; 85027; 86850; 86900; 86901; 87635; J0690; J1100; J1642; J1644; J1885; J2405; J2550; J2704; J2720; J3010; U0003

== ENCOUNTER 2020-04-20 16:40 | Emergency (ER) | payer OTHER | END 2020-04-20 17:43 | disposition left against medical advice (07) | LOC: ERS 16:40 | DX: F10.129 Alcohol abuse with intoxication, unspecified (principal); F12.10 Cannabis abuse, uncomplicated; I10 Essential (primary) hypertension ==

== ENCOUNTER 2021-08-02 15:06 | Emergency (ER) | payer OTHER | END 2021-08-02 16:40 | disposition home or self-care (01) | LOC: ERS 15:06 | DX: J30.9 Allergic rhinitis, unspecified (principal); R05.9 Cough, unspecified; I10 Essential (primary) hypertension; E78.5 Hyperlipidemia, unspecified; E78.00 Pure hypercholesterolemia, unspecified; F17.210 Nicotine dependence, cigarettes, uncomplicated | CPT/HCPCS: 71045 ==

== ENCOUNTER 2023-05-26 21:03 | Observation (INO) | payer OTHER, MEDICARE ==
[2023-05-26 23:36] LABS: #Eosinphils 0.1 thou/uL (0.0-0.7); #Monocytes 0.4 thou/uL (0.11-0.59); %Basophils 0.4 % (0.0-1.0); %Eosinophils 1.2 % (0.0-10.0); %Lymphocytes 31.3 % (21.0-51.0); %Monocytes 7.6 % (0.0-10.0); %Neutrophils 58.1 % (42.0-75.0); Hematocrit 42.7 % (42.0-52.0); Hemoglobin 13.5 g/dL (14.0-18.0); Mean Corpuscular HGB CONC 31.6 g/dL (32.0-36.0); Mean Corpuscular Volume 88.6 fl (78.0-98.0); Mean Platelet Volume 8.9 fL (7.4-10.4); Platelet Count 256 10x3/uL (130-400); RBC Distribution Width 14.6 % (11.5-14.5); Red Blood Cell (RBC) Count 4.82 mill/uL (4.70-6.10); White Blood Cell (WBC) Count 5.1 10x3/uL (4.8-10.8)
[2023-05-27] LABS: ALT (SGPT) 14 U/L (8-55); AST (SGOT) 20 U/L (5-34); Albumin 4.1 g/dL (3.4-4.8); Alkaline Phosphatase 92 U/L (40-110); Anion Gap 13 mmol/L (10-20); BUN (Urea Nitrogen) 13 mg/dL (8.4-25.7); Bilirubin, Total 0.2 mg/dL (0.2-1.2); Calc. Creatinine Clearance 0 mL/min (70-130); Calcium 9.2 mg/dL (7.8-10.44); Carbon Dioxide 25 mmol/L (23-31); Chloride 107 mmol/L (98-107); Estimated GFR 91; Globulin 3.3 g/dL (2.4-3.5); Glucose 86 mg/dL (83-110); Potassium 4.1 mmol/L (3.5-5.1); Protein, Total 7.4 g/dL (5.8-8.1); Sodium 141 mmol/L (136-145)
[2023-05-27 00:03] LABS: Troponin I 0.016 ng/mL (< 0.028)
[2023-05-27] MEDS ORDERED: Senokot S 8.6-50 MG TAB PO PRN (07:50)
[2023-05-27] MEDS ORDERED: Acetaminophen 325 MG TAB PO PRN (07:50)
[2023-05-27 08:16] VITALS: BMI 20.2
[2023-05-27] MEDS ORDERED: Aspirin Chewable 81 MG TAB ONE (09:38)
[2023-05-27] MEDS ORDERED: Famotidine 20 MG TAB ONE (09:38)
[2023-05-27] MEDS ORDERED: Enoxaparin 40 MG (0.4 mL) SYRINGE ONE (09:39)
[2023-05-27] MEDS: Enoxaparin 40 MG (0.4 mL) SYRINGE SC SCH (09:43)
[2023-05-27] MEDS: Aspirin 81 mg Enteric Coated Tablet PO SCH (09:43)
[2023-05-27] MEDS: Famotidine 20 MG TAB PO SCH (09:43)
[2023-05-27] MEDS: hydrALAZINE 20 MG/ML VIAL SLOW IVP PRN (10:38)
[2023-05-27] MEDS: Atorvastatin Calcium 40 MG TAB PO SCH (20:25)
[2023-05-27] MEDS: ALPRAZolam 0.25 MG TAB PO PRN (20:26)
[2023-05-28 16:13] VITALS: BP 137/74; TEMP 98.2
[2023-05-29] MEDS ORDERED: Clopidogrel Bisulfate 75 MG TAB PO SCH (09:00)
== END 2023-05-28 16:35 | disposition home or self-care (01) ==
LOC: ERS 21:03 → 2SW 05-27 06:36 → ERHOLD 05-27 06:47 → 2SW 05-27 10:32
PROVIDERS: ADMIT Student in an Organized Health Care Education/Training Program; ATTEND Internal Medicine
DX: I63.9 Cerebral infarction, unspecified (principal); G45.9 Transient cerebral ischemic attack, unspecified; I10 Essential (primary) hypertension; H54.62 Unqualified visual loss, left eye, normal vision right eye; I73.9 Peripheral vascular disease, unspecified; E78.5 Hyperlipidemia, unspecified; F43.10 Post-traumatic stress disorder, unspecified; F17.200 Nicotine dependence, unspecified, uncomplicated; Z79.899 Other long term (current) drug therapy
CPT/HCPCS: 36415; 36416; 70450; 70551; 71045; 80053; 80061; 84484; 85025; 93005; 93880; 96372; 96374; G0378; J0360; J1650